=== PATIENT | male | born 1990 ===

== ENCOUNTER → 2021-05-11 12:55 | Outpatient (CLI) | payer OTHER, SELFPAY ==
[2021-05-14 00:36] LABS: Chlamydia trachomatis NAA Negative (Negative); Neisseria gonorrhoeae NAA Negative (Negative)
== END ==
PROVIDERS: PCP Physician Assistant Medical; Visit Provider Physician Assistant Medical
DX: Z20.2 Contact with and (suspected) exposure to infections with a predominantly sexual mode of transmission (principal)
CPT/HCPCS: 81002; 87086; 87491; 87591